=== PATIENT | male | born 1980 | race Caucasian/White ===

== ENCOUNTER 2019-10-14 11:07 | Emergency (ER) | payer MEDICAID ==
[2019-10-14] MEDS ORDERED: Ketorolac 60 MG/2 ML SDV IM ONE (11:54)
[2019-10-14] MEDS ORDERED: Ondansetron 4 MG Tab.DIS PO ONE (11:54)
[2019-10-14] MEDS ORDERED: Orphenadrine 100 MG Tab.ER PO ONE (11:54)
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
--- NOTE | 2019-10-14 12:33 | CR ---
Lumbar spine: AP and lateral views of the lumbar spine were obtained. Comparison: No prior lumbar spine imaging. Moderate disc space narrowing is seen at L5-S1. Mild disc space narrowing is noted within the lower thoracic spine. Other disc spaces are maintained. Vertebral body heights maintained. Minimal scattered endplate osteophyte are seen. Pedicles as well as transverse and spinous processes are intact. No subluxation or fracture is seen. Impression: 1. Mild degenerative change as noted above. 2. Nothing acute is appreciated on two-view lumbar spine study. Diagnostic code #2 This report was dictated in [place] Standard Time
== END 2019-10-14 12:55 | disposition home or self-care (01) ==
LOC: JD.ED 11:07
DX: M54.5 Low back pain (principal); F17.210 Nicotine dependence, cigarettes, uncomplicated; W00.0XXA Fall on same level due to ice and snow, initial encounter; Y92.038 Other place in apartment as the place of occurrence of the external cause
CPT/HCPCS: 72100; 96372; 99283; A9270; J1885

== ENCOUNTER 2019-10-27 08:09 | Emergency (ER) | payer MEDICAID ==
--- NOTE | 2019-10-27 09:31 | EDM.PDOC ---
ED HPI GENERAL MEDICAL PROBLEM - General Chief Complaint: General Stated Complaint: SORE GENITALS Time Seen by Provider: 10/27/19 09:21 - History of Present Illness INITIAL COMMENTS - FREE TEXT/NARRATIVE: 39-year-old male presents the emergency room with abdominal pain and testicular pain. This pain is been going on for the last 6 or 7 days. He is not aware of any fevers has had some nausea with this but is having pretty significant pain seems to be slightly worse on the right compared to the left. He is got no prior history of abdominal surgeries. Seems to be worse in the testicular area however he has significant lower abdominal pain worse on the right compared to the left. He denies any diarrhea or constipation last normal BM was yesterday. Patient did have a stool today that was normal size and contour but it had some blood in it slightly darker than bright red. Groin Pain Score (Numeric/FACES): 7 - Related Data Allergies Allergy/AdvReac Type Severity Reaction Status Date / Time No Known Allergies Allergy Verified 10/27/19 08:49 Home Meds: Home Meds Acetaminophen/HYDROcodone [[place] 325-7.5 MG] 1 - 2 tab PO Q6H PRN #20 tab [Rx] Ondansetron [Zofran ODT] 4 mg PO Q6H PRN #10 tab.dis 10/27/19 [Rx] Past Medical History - Past Health History Medical/Surgical History: Denies Medical/Surgical History Musculoskeletal History: Reports: Back Pain, Chronic Psychiatric History: Reports: Depression - Past Surgical History Other HEENT Surgeries/Procedures: Jaw surgery Social & Family History - Tobacco Use Smoking Status *Q: Current Every Day Smoker Years of Tobacco use: 25 Packs/Tins Daily: 0.5 Second Hand Smoke Exposure: No - Caffeine Use Caffeine Use: Reports: Coffee, Energy Drinks, Soda, Tea - Recreational Drug Use Recreational Drug Use: No ED ROS GENERAL - Review of Systems Review Of Systems: See Below Constitutional: Reports: No Symptoms HEENT: Reports: No Symptoms Respiratory: Reports: No Symptoms Cardiovascular: Reports: No Symptoms GI/Abdominal: Reports: Abdominal Pain, Nausea. Denies: No Symptoms, Constipation, Diarrhea, Vomiting : Reports: Other (Pain) Musculoskeletal: Reports: No Symptoms Skin: Reports: No Symptoms ED EXAM, GENERAL - Physical Exam Exam: See Below Exam Limited By: No Limitations General Appearance: Alert, No Apparent Distress Head: Atraumatic, Normocephalic Neck: Normal Inspection Respiratory/Chest: No Respiratory Distress, Lungs Clear, Normal Breath Sounds Cardiovascular: Regular Rate, Rhythm, No Edema, No Murmur GI/Abdominal: Normal Bowel Sounds, Soft, Other (He has some vague but significant lower quadrant tenderness seems to be worse on the right compared to the left.). No: Guarding, Rigid, Rebound (Male) Exam: No Hernia, Normal Inspection, Normal Prostate, Circumcised, Scrotum Tenderness (L), Scrotum Tenderness (R). No: Hernia, Inguinal Lymphadenopathy, Penile Lesions Rectal (Males) Exam: Normal Rectal Tone, Heme + Stool, Other (Prostate may be slightly enlarged) Back Exam: Normal Inspection. No: CVA Tenderness (L), CVA Tenderness (R) Course - Vital Signs Last Recorded V/S: Last Vital Signs Temp 36.4 C 10/27/19 08:50 Pulse 77 10/27/19 08:50 Resp 18 10/27/19 08:50 BP 132/98 H 10/27/19 08:50 Pulse Ox 100 10/27/19 08:50 - Orders/Labs/Meds Orders: Active Orders 24 hr Category Date Time Status Sodium Chloride 0.9% [Saline Flush] Med 10/27/19 13:02 Active 10 ml FLUSH ONETIME PRN Medication Orders Sodium Chloride (Saline Flush) 10 ml FLUSH ONETIME PRN PRN Reason: IV FLUSH Last Admin: 10/27/19 13:21 Dose: 10 ml Labs: Laboratory Tests 10/27/19 10/27/19 10/27/19 Range/Units 10:40 10:40 11:46 WBC 6.08 (4.23-9.07) K/mm3 RBC 4.87 (4.63-6.08) M/mm3 Hgb 15.4 (13.7-17.5) gm/dl Hct 44.0 (40.1-51.0) % MCV 90.3 (79.0-92.2) fl MCH 31.6 (25.7-32.2) pg MCHC 35.0 (32.2-35.5) g/dl RDW Std Deviation 43.3 (35.1-43.9) fL Plt Count 162 L (163-337) K/mm3 MPV 9.8 (9.4-12.3) fl Neut % (Auto) 54.8 (34.0-67.9) % Lymph % (Auto) 28.6 (21.8-53.1) % [place] % (Auto) 12.2 (5.3-12.2) % Eos % (Auto) 3.9 (0.8-7.0) Baso % (Auto) 0.3 (0.1-1.2) % Neut # (Auto) 3.33 (1.78-5.38) K/mm3 Lymph # (Auto) 1.74 (1.32-3.57) K/mm3 [place] # (Auto) 0.74 (0.30-0.82) K/mm3 Eos # (Auto) 0.24 (0.04-0.54) K/mm3 Baso # (Auto) 0.02 (0.01-0.08) K/mm3 Sodium 140 (136-145) mEq/L Potassium 4.1 (3.5-5.1) mEq/L Chloride 108 H (98-107) mEq/L Carbon Dioxide 25 (21-32) mEq/L Anion Gap 11.1 (5-15) BUN 10 (7-18) mg/dL Creatinine 0.9 (0.7-1.3) mg/dL Est Cr Clr Drug Dosing 123.35 mL/min Estimated GFR (MDRD) > 60 (>60) mL/min BUN/Creatinine Ratio 11.1 L (14-18) Glucose 85 (74-106) mg/dL Calcium 8.5 (8.5-10.1) mg/dL Total Bilirubin 0.3 (0.2-1.0) mg/dL AST 14 L (15-37) U/L ALT 28 (16-63) U/L Alkaline Phosphatase 61 (46-116) U/L Total Protein 6.5 (6.4-8.2) g/dl Albumin 3.7 (3.4-5.0) g/dl Globulin 2.8 gm/dL Albumin/Globulin Ratio 1.3 (1-2) Urine Color Yellow (Yellow) Urine Appearance Clear (Clear) Urine pH 6.5 (5.0-8.0) Ur Specific [place] 1.020 (1.005-1.030) Urine Protein Negative (Negative) Urine Glucose (UA) Negative (Negative) Urine Ketones Negative (Negative) Urine Occult Blood Negative (Negative) Urine Nitrite Negative (Negative) Urine Bilirubin Negative (Negative) Urine Urobilinogen 0.2 (0.2-1.0) Ur Leukocyte Esterase Negative (Negative) Meds: Medications Generic Name Dose Route Start Last Admin Trade Name Freq PRN Reason Stop Dose Admin Sodium Chloride 10 ml 10/27/19 13:02 10/27/19 13:21 Saline Flush FLUSH 10 ml ONETIME PRN Administration IV FLUSH Discontinued Medications Generic Name Dose Route Start Last Admin Trade Name Freq PRN Reason Stop Dose Admin Hydrocodone Bitart/Acetaminophen 2 tab 10/27/19 15:22 10/27/19 15:45 [place] 325-5 Mg PO 10/27/19 15:23 2 tab ONETIME ONE Administration Fentanyl 50 mcg 10/27/19 12:56 10/27/19 13:07 Sublimaze IVPUSH 10/27/19 12:57 50 mcg ONETIME ONE Administration Fentanyl 50 mcg 10/27/19 13:46 10/27/19 13:56 Sublimaze IVPUSH 10/27/19 13:47 50 mcg ONETIME STA Administration Hydromorphone HCl 0.5 mg 10/27/19 09:41 10/27/19 10:48 Dilaudid IVPUSH 10/27/19 09:42 0.5 mg ONETIME ONE Administration Hydromorphone HCl 0.5 mg 10/27/19 11:39 10/27/19 11:45 Dilaudid IVPUSH 10/27/19 11:40 0.5 mg ONETIME ONE Administration Lactated Ringer's 1,000 mls @ 999 mls/hr 10/27/19 09:42 10/27/19 10:46 Ringers, Lactated IV 10/27/19 10:42 999 mls/hr .BOLUS ONE Administration Iopamidol 100 ml 10/27/19 13:02 10/27/19 13:21 Isovue-300 (61%) IVPUSH 10/27/19 13:03 100 ml ONETIME ONE Administration Ondansetron HCl 4 mg 10/27/19 09:42 10/27/19 10:47 Zofran IVPUSH 10/27/19 09:43 4 mg ONETIME ONE Administration - Re-Assessments/Exams Free Text/Narrative Re-Assessment/Exam: 10/27/19 15:30 Testicular ultrasound shows a minimal left-sided varicocele I do not believe this is causing the pain. I did go ahead and get a CT of his abdomen with IV contrast no oral contrast because I was thinking he might have a kidney stone and this does not show anything acute is well visualized and appears normal kidneys are of normal size ureters are of normal size. It is quite possible he has an abdominal wall strain that is causing this discomfort however I cannot exclude hernia even though nothing was visualized on imaging. 10/27/19 15:48 Did discuss the case with Dr. Velasquez who will see the patient in follow-up tomorrow afternoon Departure - Departure Time of Disposition: 15:29 Disposition: Home, Self-Care 01 Clinical Impression: Abdominal wall strain - Discharge Information Prescriptions: Acetaminophen/HYDROcodone [[place] 325-7.5 MG] 1 - 2 tab PO Q6H PRN #20 tab PRN Reason: Abdominal Pain Ondansetron [Zofran ODT] 4 mg PO Q6H PRN #10 tab.dis PRN Reason: Nausea/Vomiting Referrals: PCP,None [Primary Care Provider] - Michelle Blankenship MD [Physician] - Forms: ED Department Discharge Additional Instructions: Return to the emergency room with any questions problems or worsening symptoms. Take the medications as directed and as needed. Follow-up with will call this afternoon for an appointment. Sepsis Event Note - Evaluation Sepsis Screening Result: No Definite Risk - Focused Exam Vital Signs: Vital Signs Temp Pulse Resp BP Pulse Ox 10/27/19 08:50 36.4 C 77 18 132/98 H 100 Date Exam was Performed: 10/27/19 Time Exam was Performed: 15:48 - My Orders Last 24 Hours: My Active Orders 10/27/19 13:02 Sodium Chloride 0.9% [Saline Flush] 10 ml FLUSH ONETIME PRN - Assessment/Plan Last 24 Hours: My Active Orders 10/27/19 13:02 Sodium Chloride 0.9% [Saline Flush] 10 ml FLUSH ONETIME PRN
[2019-10-27] MEDS ORDERED: HYDROmorphone 0.5 MG/0.5 ML Syringe IVPUSH ONE ×2 (09:41→11:39)
[2019-10-27] MEDS ORDERED: Ondansetron 4 MG/2 ML SDV IVPUSH ONE (09:42)
[2019-10-27] MEDS ORDERED: Lactated Ringers 1,000 ML IV ONE (09:42)
--- NOTE | 2019-10-27 11:34 | US ---
Testicular ultrasound: Multiple real-time images were obtained of both testicles. Doppler evaluation was also performed. Comparison: No prior testicular imaging is available. Both testicles have a homogeneous ultrasound appearance. Both arterial and venous blood flow are seen within both testicles. No significant hydrocele is seen on either side. Minimal varicocele is noted on the left side. Measurements: Right testicle: 5.5 x 3.5 x 2.8 cm Left testicle: 5.6 x 3.1 x 2.9 cm Impression: 1. Minimal left-sided varicocele. 2. Testicular ultrasound is otherwise unremarkable. Diagnostic code #3 This report was dictated in [place] Standard Time
[2019-10-27] MEDS ORDERED: fentaNYL 100 MCG/2 ML SDV IVPUSH ONE (12:56)
[2019-10-27] MEDS ORDERED: Iopamidol 612 MG/ML 100 ML Bottle IVPUSH ONE (13:02)
[2019-10-27] MEDS ORDERED: Sodium Chloride 0.9% 10 ML Syringe FLUSH PRN (13:02)
[2019-10-27] MEDS ORDERED: Iopamidol 755 MG/ML 50 ML Bottle IVPUSH ONE (13:06)
[2019-10-27] MEDS ORDERED: Iopamidol 612 MG/ML 50 ML SDV IVPUSH ONE (13:23)
[2019-10-27] MEDS ORDERED: fentaNYL 100 MCG/2 ML SDV IVPUSH STA (13:46)
--- NOTE | 2019-10-27 14:21 | CT ---
CT abdomen and pelvis Technique: Multiple axial sections were obtained from above the dome of the diaphragm inferiorly through the pubic symphysis. Intravenous contrast was utilized. No oral contrast has been given. Delayed images were also obtained from above the kidneys inferiorly through the pubic symphysis. Comparison: No prior abdominal imaging. Findings: Visualized lung bases show nothing acute. Liver contains no focal parenchymal abnormality. Spleen appears within normal limits. Adrenal glands show no nodule. Pancreas is within normal limits. Gallbladder contains no calcified gallstones. Kidneys show symmetric contrast enhancement. Delayed images show contrast excretion from both kidneys into normal sized ureters as well as contrast within the bladder. Aorta shows no aneurysm. No retroperitoneal adenopathy is seen. No mesenteric abnormalities are seen. Appendix is seen which is normal in size. No pelvic mass or adenopathy is seen. No free fluid or inflammatory change is seen. Bone window settings were reviewed which show no acute osseous finding. Impression: 1. Findings as noted above. Nothing acute is appreciated. Diagnostic code #1 This report was dictated in [place] Standard Time
[2019-10-27] MEDS ORDERED: Acetaminophen/HYDROcodone 325-5 MG Tab PO ONE (15:22)
== END 2019-10-27 16:10 | disposition home or self-care (01) ==
LOC: JD.ED 08:09
DX: S39.011A Strain of muscle, fascia and tendon of abdomen, initial encounter (principal); F17.210 Nicotine dependence, cigarettes, uncomplicated; X58.XXXA Exposure to other specified factors, initial encounter
CPT/HCPCS: 36415; 74177; 76870; 80053; 81003; 85025; 93975; 96361; 96374; 96375; 96376; 99284; A9270; J1170; J2405; J3010; J7120; Q9967